=== PATIENT | male | born 1960 | race Hispanic/Latino ===

== ENCOUNTER 2018-06-10 14:29 | Emergency (ER) | payer OTHER, MEDICAID, SELFPAY ==
[2018-06-10 14:42] VITALS: BP 146/77; PULSE 99; RESP 13; TEMP 36.8; O2SAT 95
[2018-06-10] MEDS: SODIUM CHLORIDE 0.9% 1,000 ML 1000 ML IV (15:00)
[2018-06-10 15:06] LABS: Add Manual Diff / Slide Review NO; Basophils Absolute Auto 0 /uL (0-100); Basophils Percent Auto 0.5 % (0-2); Eosinophils Absolute Auto 100 /uL (0-450); Eosinophils Percent Auto 0.9 % (2-4); Hematocrit 44.9 % (41-53); Hemoglobin 15.8 g/dL (13.5-17.5); Lymphocytes Absolute Auto 1400 /uL (1100-4500); Lymphocytes Percent Auto 19.4 % (25-40); Mean Corpuscular HGB Conc 35.3 % (30-36); Mean Corpuscular Hemoglobin 27.5 PG (26-34); Mean Corpuscular Volume 77.9 fL (80-100); Monocytes Absolute Auto 500 /uL (0-900); Monocytes Percent Auto 6.5 % (3-14); Neutrophils Absolute Auto 5400 /uL (1500-7000); Neutrophils Percent Auto 72.7 % (50-75); Platelet Count 70 X10^3/uL (150-400); Red Blood Cell Count 5.76 X10^6/uL (4.5-5.9); Red Cell Distribution Width 14.3 % (11.6-14.8); White Blood Cell Count 7.4 X10^3/uL (4.5-11.0)
[2018-06-10 15:08] LABS: INR 1.2 (0.9-1.3); PTT Partial Thromboplastin Tim 34 SECONDS (26.4-36.2); Prothrombin Time 13.7 SECONDS (10.1-12.7)
[2018-06-10 15:09] LABS: Alanine Aminotransferase 45 IU/L (21-72); Albumin Globulin Ratio 1.2 (1.0-2.8); Alkaline Phosphatase 104 U/L (38-126); Aspartate Aminotransferase 28 IU/L (17-59); Bilirubin Total 2.3 mg/dL (0.2-1.3); Blood Urea Nitrogen 16 mg/dL (9-20); Calcium 8.8 mg/dL (8.4-10.2); Carbon Dioxide 28 mmol/L (22-32); Chloride 95 mmol/L (98-107); Estimated Glomerular Filt Rate > 60.0 mL/min (>60); Globulin 3.3 g/dL (1.7-4.1); Glucose 320 mg/dL (70-100); HEMOLYSIS < 15 (0-50); Lipase 41 U/L (23-300); Potassium 4.6 mmol/L (3.4-5.1); Sodium 135 mmol/L (137-145); Total Protein 7.3 g/dL (6.3-8.2)
[2018-06-10 15:37] VITALS: BP 135/96; PULSE 96; RESP 16; O2SAT 97
[2018-06-10 16:11] LABS: Bacteria Urine None Seen; RBC Urine None Seen (0-5/HPF)
[2018-06-10 16:22] LABS: Culture Indicated Urine Cult Not Indicated; Mucus Urine 2+ (Negative); Squamous Epithelial Cell Urine 5-10 /HPF; WBC Urine 5-10/HPF (0-5/HPF)
[2018-06-10 16:27] VITALS: BP 145/97; PULSE 93; RESP 15; O2SAT 94
--- NOTE | 2018-06-10 16:33 | ED.GENADULT ---
HPI - General Adult General Chief complaint: Diabetic Problem Stated complaint: Hyperglycemia Time Seen by Provider: 06/10/18 16:20 Source: patient and other Mode of arrival: EMS Limitations: no limitations History of Present Illness HPI narrative: This is a 57-year-old male who comes to the emergency department with complaint of elevated blood sugar hand not feeling well. Patient states he just felt sort of wobbly today. Had a little bit of numbness in both lower extremities. Patient denies any headaches no chest pain, no shortness of breath, no abdominal pain. No nausea no vomiting no diarrhea or constipation. He was very thirsty today and has urinated several times. He is currently living in his car with several other family members and friends so he has not been moving around much lately. Patient has known diabetes, he was on metformin as well as blood pressure medication which she has been for several months patient has remote history of alcohol abuse. Patient states he also uses methamphetamines, he states he has not used any amphetamines in several weeks. Patient states that he typically gets his medical care at [facility] or the urgent care over there. He states that he had surgery for a pelvic fracture in the past but no other surgical history. No allergies to medications. Related Data Previous Rx's Medication Instructions Recorded lisinopril 5 mg PO DAILY #30 tab 06/10/18 metformin 500 mg PO BID #30 tab 06/10/18 Allergies Allergy/AdvReac Type Severity Reaction Status Date / Time No Known Drug Allergies Allergy Verified 06/10/18 14:48 Review of Systems Review of Systems ROS Unobtainable: All systems reviewed & are unremarkable except as noted in HPI and below Constitutional Denies anorexia, Denies body ache(s), Denies chills, Denies excessive sweating, Denies fatigue, Denies fever(s), Denies lethargy and Reports weakness (Both legs, felt wobbly) Cardiovascular Denies chest pain, Reports diaphoresis, Denies syncope, Denies irregular heart rhythm, Denies leg edema, Denies lightheadedness, Denies palpitations, Denies dyspnea, Denies dyspnea on exertion and Denies orthopnea Respiratory Denies change in phlegm color, Denies chest congestion, Denies cough, Denies dyspnea, Denies dyspnea on exertion and Denies wheezing Gastrointestinal Gastrointestinal: Denies abdominal pain, Denies change in bowel habits, Denies diarrhea, Denies nausea and Denies vomiting Genitourinary Denies hematuria, Denies flank pain, Denies urinary incontinence and Denies urinary urgency Integumentary/Breasts Denies rash Neurologic Denies syncope, Denies focal weakness, Denies sensory deficit and Reports weakness (Both legs, felt wobbly) Endocrine Denies excessive sweating, Denies fatigue, Denies palpitations and Reports other (Thirsty) Allergic/Immunologic Denies wheezing PFSH Medical History Diabetes (Chronic) Hypertension (Chronic) Social History Smoking Status: Current every day smoker alcohol intake: former substance use type: amphetamines Social History Smoking Status: Current every day smoker alcohol intake: former substance use type: amphetamines Exam Narrative Exam Narrative: GEN: well nourished, well appearing male, alert and oriented x 3, patient appears to be in no acute distress. HEENT: Atraumatic, pupils are equal round reactive to light, extraocular movements are intact, nares are clear. HEART: Regular rate and rhythm without murmur, clicks, rubs. No carotid bruits, pulses are equal in upper and lower extremities LUNGS:Lungs clear to auscultation, no wheezes, rales, crackles, chest moves symmetrically ABD:bowel sounds normal, soft, non-tender, no guarding, rebound, rigidity, no masses noted, no hepatosplenomegaly :No CVA tenderness. MSCL: Non-tender, no muscle atrophy, muscles strength 5/5 upper and lower extremities, full range of motion. NEURO:CN 2-12 intact, sensation normal. Initial Vital Signs Initial Vital Signs: Vital Signs Temperature 98.2 F 06/10/18 14:42 Pulse Rate 99 H 06/10/18 14:42 Respiratory Rate 13 06/10/18 14:42 Blood Pressure 146/77 H 06/10/18 14:42 Pulse Oximetry 95 06/10/18 14:42 Course Orders Ordered: ED Orders 06/10/18 14:25 Complete Blood Count AUTO DIFF Stat Comprehensive Metabolic Panel Stat Lipase Stat Partial Thromboplastin Time Stat Prothrombin Time INR Stat Troponin & CK Cardiac Panel Stat 06/10/18 14:56 EKG-12 Lead Stat 06/10/18 16:10 Urine Microscopic Stat Discontinued Medications Sodium Chloride (Normal Saline 0.9%) 1,000 mls @ 1,000 mls/hr IV BOLUS ONE Stop: 06/10/18 15:55 Last Infusion: 06/10/18 16:02 Dose: 0 mls/hr Admin: 06/10/18 15:00 Dose: 1,000 mls/hr Vital Signs - 8 hr 06/10/18 14:42 06/10/18 15:37 06/10/18 16:27 Temperature 98.2 F Pulse Rate 99 H 96 H 93 H Respiratory Rate 13 16 15 Blood Pressure 146/77 H Blood Pressure [Left Arm] 135/96 H 145/97 H Pulse Oximetry 95 97 94 06/10/18 18:40 Temperature Pulse Rate 89 Respiratory Rate 13 Blood Pressure Blood Pressure [Left Arm] 150/92 H Pulse Oximetry 100 Medical Decision Making Lab Data Lab results reviewed: Yes I reviewed the patient's lab results. Result diagrams: 06/10/18 14:25 06/10/18 14:25 Lab Results 06/10/18 06/10/18 06/10/18 Range/Units 14:25 14:25 14:25 WBC 7.4 (4.5-11.0) X10^3/uL RBC 5.76 (4.5-5.9) X10^6/uL Hgb 15.8 (13.5-17.5) g/dL Hct 44.9 (41-53) % MCV 77.9 L (80-100) fL MCH 27.5 (26-34) PG MCHC 35.3 (30-36) % RDW 14.3 (11.6-14.8) % Plt Count 70 L (150-400) X10^3/uL Neut % (Auto) 72.7 (50-75) % Lymph % (Auto) 19.4 L (25-40) % Cannon % (Auto) 6.5 (3-14) % Eos % (Auto) 0.9 L (2-4) % Baso % (Auto) 0.5 (0-2) % Neut # (Auto) 5400 (3409-3999) /uL Lymph # (Auto) 1400 (0065-8660) /uL Cannon # (Auto) 500 (0-900) /uL Eos # (Auto) 100 (0-450) /uL Baso # (Auto) 0 (0-100) /uL PT 13.7 H (10.1-12.7) SECONDS INR 1.2 (0.9-1.3) APTT 34 (26.4-36.2) SECONDS Sodium 135 L (137-145) mmol/L Potassium 4.6 (3.4-5.1) mmol/L Chloride 95 L (98-107) mmol/L Carbon Dioxide 28 (22-32) mmol/L BUN 16 (9-20) mg/dL Creatinine 0.50 L (0.66-1.25) mg/dL Estimated GFR > 60.0 (>60) mL/min BUN/Creatinine Ratio 32.0 H (6-22) Glucose 320 H (70-100) mg/dL Calcium 8.8 (8.4-10.2) mg/dL Total Bilirubin 2.3 H (0.2-1.3) mg/dL AST 28 (17-59) IU/L ALT 45 (21-72) IU/L Alkaline Phosphatase 104 (38-126) U/L Total Creatine Kinase (55-170) U/L CK-MB (CK-2) CK-MB (CK-2) Rel Index Troponin I (0.01-0.034) ng/mL Total Protein 7.3 (6.3-8.2) g/dL Albumin 4.0 (3.5-5.0) g/dL Globulin 3.3 (1.7-4.1) g/dL Albumin/Globulin Ratio 1.2 (1.0-2.8) Lipase 41 (23-300) U/L Urine RBC (0-5/HPF) Urine WBC (0-5/HPF) Ur Squamous Epith Cells Urine Bacteria (None) Urine Mucus (Negative) Ur Culture Indicated? 06/10/18 06/10/18 Range/Units 14:25 16:10 WBC (4.5-11.0) X10^3/uL RBC (4.5-5.9) X10^6/uL Hgb (13.5-17.5) g/dL Hct (41-53) % MCV (80-100) fL MCH (26-34) PG MCHC (30-36) % RDW (11.6-14.8) % Plt Count (150-400) X10^3/uL Neut % (Auto) (50-75) % Lymph % (Auto) (25-40) % Cannon % (Auto) (3-14) % Eos % (Auto) (2-4) % Baso % (Auto) (0-2) % Neut # (Auto) (7307-4478) /uL Lymph # (Auto) (9783-7914) /uL Cannon # (Auto) (0-900) /uL Eos # (Auto) (0-450) /uL Baso # (Auto) (0-100) /uL PT (10.1-12.7) SECONDS INR (0.9-1.3) APTT (26.4-36.2) SECONDS Sodium (137-145) mmol/L Potassium (3.4-5.1) mmol/L Chloride (98-107) mmol/L Carbon Dioxide (22-32) mmol/L BUN (9-20) mg/dL Creatinine (0.66-1.25) mg/dL Estimated GFR (>60) mL/min BUN/Creatinine Ratio (6-22) Glucose (70-100) mg/dL Calcium (8.4-10.2) mg/dL Total Bilirubin (0.2-1.3) mg/dL AST (17-59) IU/L ALT (21-72) IU/L Alkaline Phosphatase (38-126) U/L Total Creatine Kinase 31 L (55-170) U/L CK-MB (CK-2) TNP CK-MB (CK-2) Rel Index TNP Troponin I < 0.012 (0.01-0.034) ng/mL Total Protein (6.3-8.2) g/dL Albumin (3.5-5.0) g/dL Globulin (1.7-4.1) g/dL Albumin/Globulin Ratio (1.0-2.8) Lipase (23-300) U/L Urine RBC None seen (0-5/HPF) Urine WBC 5-10/hpf H (0-5/HPF) Ur Squamous Epith Cells 5-10 /hpf H Urine Bacteria None seen (None) Urine Mucus 2+ H (Negative) Ur Culture Indicated? Cult not indicated Point of Care Testing Glucose POC 193 Urine Dip Bedside Urine Glucose 500 mg/dl Bedside Urine Bilirubin - Negative Bedside Urine Ketone - Negative Urine Specific [place] 1.020 Bedside Urine Occult Blood - Negative Bedside Urine pH 6.0 Bedside Urine Protein ++ 100 Bedside Urine Urobilinogen 1+ 2mg Bedside Urine Nitrite - Negative Bedside Urine Leukocytes + 70 Esterase Point of care testing: Point of Care Testing Glucose POC 193 Urine Dip Bedside Urine Glucose 500 mg/dl Bedside Urine Bilirubin - Negative Bedside Urine Ketone - Negative Urine Specific [place] 1.020 Bedside Urine Occult Blood - Negative Bedside Urine pH 6.0 Bedside Urine Protein ++ 100 Bedside Urine Urobilinogen 1+ 2mg Bedside Urine Nitrite - Negative Bedside Urine Leukocytes + 70 Esterase ECG Data Attestation: I personally reviewed and interpreted this ECG as follows: Interpretation: Sinus rhythm ventricular rate of 92 P are 169 QRS of 90 and QTC of 409. Driven inversion 4 5 and 6. MDM Narrative Medical decision making narrative: patient comes in with complaint concern for hyperglycemia he is elevated. He did respond to some fluids. Patient has been off his metformin as well as blood pressure medication which he states is lisinopril. He is unsure of lisinopril dose. Patient does not show any signs of DKA, unable to get prior EKG for comparison but troponin shows no changes and patient is not having any symptoms concerning for ACS. he is interested in having his medications refilled and does think that he can fill them. He has a primary care through [facility]. Repeat sugar after fluids on patient having eaten some was 193. Discharge Plan Departure Patient Disposition: Home Clinical Impression: Hyperglycemia Instructions: DI for Hyperglycemia -- Adult Activity Restrictions/Additional Instructions: Follow up with your primary care physician in the next week for recheck at the [facility]. Continue your home medications as prescribed, take metformin twice daily. Take lisinopril once daily. It is important that you have your labs rechecked and make sure these medications are working appropriately in the next week or two. Return to the ER for fevers greater than 100.4, new chest pain, shortness of breath, persistent vomiting, black or bloody stools, very dark or tea-colored urine or other new or concerning symptoms Prescriptions: New metformin 500 mg tablet 500 mg PO BID Qty: 30 RF: 0 lisinopril 5 mg tablet 5 mg PO DAILY Qty: 30 RF: 0
[2018-06-10 16:49] LABS: Creatine Kinase 31 U/L (55-170)
[2018-06-10 17:02] LABS: Troponin I < 0.012 ng/mL (0.01-0.034)
[2018-06-10 18:40] VITALS: BP 150/92; PULSE 89; RESP 13; O2SAT 100
[2018-06-10 19:27] VITALS: BP 162/99; PULSE 93; RESP 16; O2SAT 100
== END 2018-06-10 19:38 | disposition home or self-care (01) ==
PROVIDERS: Emergency Provider Emergency Medicine
DX: R73.9 Hyperglycemia, unspecified (principal)
CPT/HCPCS: 36591; 80053; 81003; 81015; 82550; 82962; 83690; 84484; 85025; 85610; 85730; 93005; 96360; 99283; 99284